=== PATIENT | female | born 1940 | race Two or more races ===

== ENCOUNTER 2022-02-05 00:45 | Emergency (ER) | payer OTHER ==
[~2022-02-05] VITALS: Ht 132.1 cm; Wt 52.2 kg
[2022-02-05] MEDS ORDERED: GEMFIBROZIL600 MG PO (00:56)
== END 2022-02-05 05:48 | disposition home or self-care (01) ==
LOC: ER 00:45
DX: R42 Dizziness and giddiness (principal); Z20.822 Contact with and (suspected) exposure to COVID-19